=== PATIENT | male | born 1955 | race Caucasian/White ===

== ENCOUNTER 2018-04-01 12:59 | Inpatient (IN) ==
[2018-04-01] MEDS ORDERED: NS 1000 ML 1,000 ML IV ONE ×3 (14:25→16:12)
[2018-04-01] MEDS: NS 1000 ML 1,000 ML IV SCH (14:37)
--- NOTE | 2018-04-01 15:14 | RAD ---
HISTORY: Shortness of breath Study: PA and lateral views of the chest Comparison:None Findings: No infiltrate, effusion or pneumothorax identified. The cardiac and mediastinal contours are within n ormal limits. The soft tissues are unremarkable. IMPRESSION: 1. No acute cardiopulmonary abnormality. Reported By:
[2018-04-01 15:20] LABS: BASOPHILS # (AUTO) 0.1 X10^3/uL (0.0-0.1); BASOPHILS % (AUTO) 0.7 % (0.2-1.0); EOSINOPHILS % (AUTO) 0.4 % (0.9-2.9); HEMATOCRIT 37.3 % (42.0-54.0); HEMOGLOBIN 12.4 g/dL (13.5-18.0); LYMPHOCYTES # (AUTO) 1.6 X10^3/uL (1.3-2.9); LYMPHOCYTES % (AUTO) 14.4 % (21.0-51.0); MEAN CORPUSCULAR HEMOGLOBIN 30.2 pg (27.0-34.0); MEAN CORPUSCULAR HGB CONC 33.2 g/dL (33.0-35.0); MEAN PLATELET VOLUME 9.8 fL (7.4-11.0); MONOCYTES # (AUTO) 0.9 x10^3/uL (0.3-0.8); MONOCYTES % (AUTO) 8.7 % (0.0-13.0); NEUTROPHILS # (AUTO) 8.2 x10^3/uL (2.2-4.8); NEUTROPHILS % (AUTO) 75.8 % (42.0-75.0); PLATELET COUNT 136 X10^3/uL (150.0-450.0); RED CELL DISTRIBUTION WIDTH 13.5 % (11.6-16.5); WHITE BLOOD COUNT 10.8 X10^3/uL (3.6-10.0)
[2018-04-01 15:30] LABS: BILIRUBIN,URINE NEGATIVE (NEGATIVE); BLOOD/HEMOGLOBIN,URINE 3+ (NEGATIVE); GLUCOSE, URINE 4+ (NEGATIVE); KETONES,URINE NEGATIVE (NEGATIVE); LEUKOCYTE ESTERASE ,URINE 3+ (NEGATIVE); NITRITES,URINE NEGATIVE (NEGATIVE); PROTEIN,URINE 1+ (NEGATIVE); UROBILINOGEN,URINE NORMAL (NORMAL)
[2018-04-01 15:31] LABS: SERUM ACETONE NEGATIVE (NEGATIVE)
[2018-04-01 15:33] LABS: ALANINE AMINOTRANSFERASE 63 Units/L (12-78); ALKALINE PHOSPHATASE 104 Units/L (46-116); ASPARTATE AMINO TRANSFERASE 30 Units/L (15-37); BLOOD UREA NITROGEN 38 mg/dL (7-18); CALCIUM 9.7 mg/dL (8.5-10.1); CARBON DIOXIDE 29.5 mmol/L (21-32); CHLORIDE 90 mmol/L (98-107); COR CA(FOR HYPOALB) 10.5 mg/dL (8.5-10.1); CREATININE 2.49 mg/dL (0.70-1.30); TOTAL PROTEIN 7.5 g/dL (6.4-8.2); eGFR NON BLACK RACES 28 (>60)
[2018-04-01 15:41] LABS: APPEARANCE,URINE CLOUDY (CLEAR); COLOR,URINE YELLOW (YELLOW)
[2018-04-01 15:42] LABS: BACTERIA,URINE 1+ /HPF (NEGATIVE); SQUAMOUS EPITHELIAL CELL,UR FEW /HPF (NEGATIVE)
[2018-04-01 15:46] LABS: COR NA(FOR HYPERGLY) 143 mmol/L (136-145); SODIUM 124 mmol/L (136-145)
[2018-04-01] MEDS: HumuLIN R SUBCUT PRN ×3 (16:06→20:38)
[2018-04-01] MEDS ORDERED: SNACK - Diabetic Appropriate PO SCH (20:00)
[2018-04-01] MEDS: ROCEPHIN VIAL 1 GRAM 1 G in NS 100 ML IV + SPIKE MINIBAG* 100 ML IV SCH (20:31)
[2018-04-02] MEDS: NS 1000 ML 1,000 ML IV SCH ×4 (00:13→17:38)
[2018-04-02] MEDS: HumuLIN R SUBCUT PRN ×4 (03:16→20:42)
[2018-04-02 06:13] LABS: BASOPHILS # (AUTO) 0.1 X10^3/uL (0.0-0.1); BASOPHILS % (AUTO) 1.4 % (0.2-1.0); EOSINOPHILS # (AUTO) 0.1 x10^3/uL (0.0-0.2); HEMATOCRIT 32.8 % (42.0-54.0); HEMOGLOBIN 11.4 g/dL (13.5-18.0); LYMPHOCYTES # (AUTO) 1.7 X10^3/uL (1.3-2.9); LYMPHOCYTES % (AUTO) 20.2 % (21.0-51.0); MEAN CORPUSCULAR HEMOGLOBIN 30.5 pg (27.0-34.0); MEAN CORPUSCULAR HGB CONC 34.9 g/dL (33.0-35.0); MEAN CORPUSCULAR VOLUME 87.2 fL (80.0-100.0); MEAN PLATELET VOLUME 8.9 fL (7.4-11.0); MONOCYTES # (AUTO) 0.6 x10^3/uL (0.3-0.8); MONOCYTES % (AUTO) 7.4 % (0.0-13.0); NEUTROPHILS # (AUTO) 5.9 x10^3/uL (2.2-4.8); PLATELET COUNT 124 X10^3/uL (150.0-450.0); RED BLOOD COUNT 3.76 X10^6/uL (4.7-6.0); RED CELL DISTRIBUTION WIDTH 13.4 % (11.6-16.5); WHITE BLOOD COUNT 8.4 X10^3/uL (3.6-10.0)
[2018-04-02 06:34] LABS: ALBUMIN 2.5 g/dL (3.4-5.0); CALCIUM 8.7 mg/dL (8.5-10.1); CARBON DIOXIDE 27.7 mmol/L (21-32); COR CA(FOR HYPOALB) 9.9 mg/dL (8.5-10.1); CREATININE 1.74 mg/dL (0.70-1.30); TOTAL PROTEIN 6.4 g/dL (6.4-8.2)
[2018-04-02] MEDS: ROCEPHIN VIAL 1 GRAM 1 G in NS 100 ML IV + SPIKE MINIBAG* 100 ML IV SCH (08:39)
[2018-04-02] MEDS ORDERED: PHARMACY CONSULT - DOSE _____ XX SCH (10:00)
[2018-04-02] MEDS ORDERED: MORPHINE SULFATE INJ 2 MG INJ IVP PRN (10:11)
[2018-04-02] MEDS ORDERED: PHENERGAN INJ 25 MG IV PRN (10:11)
[2018-04-02] MEDS ORDERED: NORCO 5/325 MG TAB PO PRN (10:11)
[2018-04-02] MEDS: ZOFRAN INJ 4 MG VIAL IVP PRN ×2 (10:30→18:07)
[2018-04-02] MEDS: JANUVIA PO SCH (10:55)
[2018-04-02] MEDS: LEVEMIR SC SCH ×2 (10:56→20:41)
[2018-04-02] MEDS: FORTAZ or TAZICEF VIAL INJ 1 G in NS 100 ML IV + SPIKE MINIBAG* 100 ML IV SCH ×2 (11:03→21:45)
[2018-04-02] MEDS: CIPRO IV 400 MG PREMIX* 400 MG/200 ML IV.SOLN. IV SCH ×2 (11:30→20:41)
--- NOTE | 2018-04-02 18:40 | DR.UPDATE ---
H&P Update History and Physical Update: WAS SEEN IN THE OFFICE TODAY. HE WAS ADMITTED TO THE HOSPITAL FOR FURTHER EVALUATION AND TREATMENT. A H&P WAS COMPLETED PRIOR TO ADMISSION. PATIENT HAS BEEN SEEN AND EXAMINED WITH NO CHANGES NOTED TO H&P. Changes noted: NO Yes with the following:
--- NOTE | 2018-04-02 20:38 | PCM.PROG ---
Progress Note - Progress Note for Day of Date of Exam: 04/02/18 - Subjective Subjective: WAS ADMITTED FOR DEHYDRATION AND UNCONTROLLED DIABETES. HE WAS NOTED WITH A BLOOD GLUCOSE OF 886 ON ADMISSION, SODIUM OF 124, BUN 38, AND CREATININE 2.49. HE WAS GIVEN 14 UNITS REGULAR INSULIN AND STARTED ON NORMAL SALINE AT 125ML/HR. TODAY, HE IS ALERT AND ORIENTED, LYING IN BED ON MORNING ROUNDS. HE IS NOTED WITH COMPLAINTS OF GENERALIZED WEAKNESS. ON EXAMINATION, HEART IS REGULAR IN RATE AND RHYTHM. BILATERAL LUNGS ARE NOTED WITH DIMINISHED LUNG SOUNDS THROUGHOUT. ABDOMEN IS ROUND, SOFT, AND NON-TENDER WITH NORMAL BOWEL SOUNDS NOTED IN ALL QUADRANTS. HIS VITALS THIS MORNING ARE 98.7-83-20-95%-139/76. LABS WERE OBTAINED. ABNORMAL LAB VALUES INCLUDE THE FOLLOWING: RBC 3.76, HGB 11.4, HCT 32.8, PLT COUNT 124, SODIUM 135, POTASSIUM 3.3, BUN 31, CREATININE 1.74, GLUCOSE 392, ALBUMIN 2.5. URINALYSIS REVEALED URINE RBC 10-20, WBC TNTC, LEUKOCYTES 3+, BACTERIA 1+, OCCULT BLOOD 3+. TODAY, WE WILL START HIM ON FORTAZ IV AND CIPRO IV. WE WILL ALSO START JANUVIA 50MG PO DAILY AND LEVEMIR 10MG SC BID. OTHERWISE, WE WILL CONTINUE WITH IV ANTIBIOTICS, SLIDING SCALE INSULIN, AND CURRENT PLAN OF CARE. WE PLAN TO FOLLOW UP WITH AM LABS AND CONTINUE TO MONITOR PATIENT. - Past Medical Family Social History Past Med/Fam/Surg Hx: No changes since H&P Allergies: Allergies No Known Drug Allergies Allergy (Verified 04/01/18 14:32) - Review of Systems ROS: No change since H&P - Vital Signs and I&O's Vital Signs: Temperature 98.3 F Pulse Rate [Left Brachial] 100 Respiratory Rate 22 Blood Pressure [Left Arm] 99/53 Blood Pressure 120/75 O2 Sat by Pulse Oximetry 97 Intake and Output: Intake & Output 03/31/18 04/01/18 04/02/18 04/03/18 11:59 11:59 11:59 11:59 Intake Total 3130 / 3130 2240 / 2240 Output Total 200 / 200 Balance 2930 / 2930 2240 / 2240 - Physical Exam Oriented: Normal Eyes: Normal Ear: Normal Nose: Normal Throat: Normal Respiratory: Generalized, Diminished Cardiovascular: Normal. negative: S3, S4, Murmur : Normal Auscultation: Bowel Sounds: Normal Palpation: Normal Tenderness: Normal Skin: Normal Musculoskeletal: Normal Psychiatric: Normal Mood Description: Calm Affect: Normal Speech Pattern: Clear, Appropriate - Laboratory and Diagnostics Result Diagrams: 04/02/18 05:40 04/02/18 05:40 Labs: 04/01/18 15:21 Urine,Clean Catch Urine Culture - Preliminary Laboratory WBC 8.4 X10^3/uL (3.6-10.0) 04/02/18 05:40 RBC 3.76 X10^6/uL (4.7-6.0) L 04/02/18 05:40 Hgb 11.4 g/dL (13.5-18.0) L 04/02/18 05:40 Hct 32.8 % (42.0-54.0) L 04/02/18 05:40 MCV 87.2 fL (80.0-100.0) 04/02/18 05:40 MCH 30.5 pg (27.0-34.0) 04/02/18 05:40 MCHC 34.9 g/dL (33.0-35.0) 04/02/18 05:40 RDW 13.4 % (11.6-16.5) 04/02/18 05:40 Plt Count 124 X10^3/uL (150.0-450.0) L 04/02/18 05:40 MPV 8.9 fL (7.4-11.0) 04/02/18 05:40 Neut % (Auto) 70.0 % (42.0-75.0) 04/02/18 05:40 Lymph % (Auto) 20.2 % (21.0-51.0) L 04/02/18 05:40 [place] % (Auto) 7.4 % (0.0-13.0) 04/02/18 05:40 Eos % (Auto) 1.0 % (0.9-2.9) 04/02/18 05:40 Baso % (Auto) 1.4 % (0.2-1.0) H 04/02/18 05:40 Neut # (Auto) 5.9 x10^3/uL (2.2-4.8) H 04/02/18 05:40 Lymph # (Auto) 1.7 X10^3/uL (1.3-2.9) 04/02/18 05:40 [place] # (Auto) 0.6 x10^3/uL (0.3-0.8) 04/02/18 05:40 Eos # (Auto) 0.1 x10^3/uL (0.0-0.2) 04/02/18 05:40 Baso # (Auto) 0.1 X10^3/uL (0.0-0.1) 04/02/18 05:40 Absolute Nucleated RBC 0.0 /100WBC 04/02/18 05:40 Sodium 135 mmol/L (136-145) L 04/02/18 05:40 Corrected Sodium 142 mmol/L (136-145) 04/02/18 05:40 Potassium 3.3 mmol/L (3.5-5.1) L 04/02/18 05:40 Chloride 101 mmol/L (98-107) 04/02/18 05:40 Carbon Dioxide 27.7 mmol/L (21-32) 04/02/18 05:40 BUN 31 mg/dL (7-18) H 04/02/18 05:40 Creatinine 1.74 mg/dL (0.70-1.30) H 04/02/18 05:40 Est GFR (MDRD) Af Amer 52 (>60) L 04/02/18 05:40 Est GFR (MDRD) Non-Af 43 (>60) L 04/02/18 05:40 Glucose 392 mg/dL (65-99) H 04/02/18 05:40 POC Glucose (mg/dL) 332 mg/dL (65-99) H 04/02/18 19:40 Hemoglobin A1c 14.0 % 04/02/18 05:40 Calcium 8.7 mg/dL (8.5-10.1) 04/02/18 05:40 Corrected Calcium 9.9 mg/dL (8.5-10.1) 04/02/18 05:40 Total Bilirubin 0.40 mg/dL (0.2-1.0) 04/02/18 05:40 AST 31 Units/L (15-37) 04/02/18 05:40 ALT 53 Units/L (12-78) 04/02/18 05:40 Alkaline Phosphatase 84 Units/L (46-116) 04/02/18 05:40 Total Protein 6.4 g/dL (6.4-8.2) 04/02/18 05:40 Albumin 2.5 g/dL (3.4-5.0) L 04/02/18 05:40 Globulin 3.9 g/dL (2.5-4.5) 04/02/18 05:40 Albumin/Globulin Ratio 0.6 Ratio (1.1-2.1) L 04/02/18 05:40 Specimen Type Clean catch urine 04/01/18 15:21 Urine Color Yellow (YELLOW) 04/01/18 15:21 Urine Appearance Cloudy (CLEAR) 04/01/18 15:21 Urine pH 5.0 (5.0 - 8.0) 04/01/18 15:21 Ur Specific [place] 1.015 (1.000-1.030) 04/01/18 15:21 Urine Protein 1+ (NEGATIVE) 04/01/18 15:21 Urine Glucose (UA) 4+ (NEGATIVE) 04/01/18 15:21 Urine Ketones Negative (NEGATIVE) 04/01/18 15:21 Urine Occult Blood 3+ (NEGATIVE) 04/01/18 15:21 Urine Nitrite Negative (NEGATIVE) 04/01/18 15:21 Urine Bilirubin Negative (NEGATIVE) 04/01/18 15:21 Urine Urobilinogen Normal (NORMAL) 04/01/18 15:21 Ur Leukocyte Esterase 3+ (NEGATIVE) 04/01/18 15:21 Urine RBC 10-20 /HPF (NONE SEEN) 04/01/18 15:21 Urine WBC Tntc /HPF (NONE SEEN) 04/01/18 15:21 Ur Squamous Epith Cells Few /HPF (NEGATIVE) 04/01/18 15:21 Urine Bacteria 1+ /HPF (NEGATIVE) 04/01/18 15:21 Ur Culture Indicated? Yes/culture set up 04/01/18 15:21 Acetone, Semi-Quant Negative (NEGATIVE) 04/01/18 15:01 - Plan (1) Dehydration Status: Acute Plan: NORMAL SALINE AT 125ML/HR, CONTINUE TO MONITOR (2) Diabetes Status: Acute Qualifiers: Diabetes mellitus type: type 2 Diabetes mellitus long term acute care registered nurse insulin use: with long term acute care registered nurse use Diabetes mellitus complication status: with hyperglycemia Qualified Code(s): E11.65 - Type 2 diabetes mellitus with hyperglycemia; Z79.4 - laborer marine terminal (current) use of insulin Plan: HUMULIN R SLIDING SCALE, LEVEMIR 10 UNITS SC BID, JANUVIA 50MG PO DAILY, CONTINUE TO MONITOR (3) Urinary tract infection Status: Acute Qualifiers: Urinary tract infection type: acute cystitis Hematuria presence: with hematuria Qualified Code(s): N30.01 - Acute cystitis with hematuria Plan: FORTAZ IV, CIPRO IV, CONTINUE TO MONITOR
[2018-04-02] MEDS: SNACK - Diabetic Appropriate PO SCH (20:41)
[2018-04-03] MEDS: NS 1000 ML 1,000 ML IV SCH ×4 (00:23→22:20)
[2018-04-03 00:36] VITALS: BMI 35.3
[2018-04-03 05:30] LABS: BASOPHILS # (AUTO) 0.1 X10^3/uL (0.0-0.1); BASOPHILS % (AUTO) 0.8 % (0.2-1.0); EOSINOPHILS # (AUTO) 0.1 x10^3/uL (0.0-0.2); EOSINOPHILS % (AUTO) 0.5 % (0.9-2.9); HEMATOCRIT 34.1 % (42.0-54.0); HEMOGLOBIN 11.4 g/dL (13.5-18.0); LYMPHOCYTES # (AUTO) 1.6 X10^3/uL (1.3-2.9); LYMPHOCYTES % (AUTO) 13.6 % (21.0-51.0); MEAN CORPUSCULAR HEMOGLOBIN 29.5 pg (27.0-34.0); MEAN CORPUSCULAR HGB CONC 33.4 g/dL (33.0-35.0); MEAN CORPUSCULAR VOLUME 88.3 fL (80.0-100.0); MEAN PLATELET VOLUME 8.5 fL (7.4-11.0); MONOCYTES # (AUTO) 1.2 x10^3/uL (0.3-0.8); MONOCYTES % (AUTO) 10.6 % (0.0-13.0); NEUTROPHILS # (AUTO) 8.6 x10^3/uL (2.2-4.8); NEUTROPHILS % (AUTO) 74.5 % (42.0-75.0); PLATELET COUNT 136 X10^3/uL (150.0-450.0); RED BLOOD COUNT 3.87 X10^6/uL (4.7-6.0); RED CELL DISTRIBUTION WIDTH 13.5 % (11.6-16.5); WHITE BLOOD COUNT 11.6 X10^3/uL (3.6-10.0)
[2018-04-03 05:40] LABS: ALBUMIN 2.3 g/dL (3.4-5.0); CALCIUM 8.3 mg/dL (8.5-10.1); CARBON DIOXIDE 25.1 mmol/L (21-32); COR CA(FOR HYPOALB) 9.7 mg/dL (8.5-10.1); CREATININE 1.67 mg/dL (0.70-1.30); TOTAL PROTEIN 6.2 g/dL (6.4-8.2)
[2018-04-03] MEDS: HumuLIN R SUBCUT PRN ×4 (05:58→21:00)
[2018-04-03] MEDS: FORTAZ or TAZICEF VIAL INJ 1 G in NS 100 ML IV + SPIKE MINIBAG* 100 ML IV SCH ×2 (08:43→20:31)
[2018-04-03] MEDS: JANUVIA PO SCH (08:43)
[2018-04-03] MEDS: CIPRO IV 400 MG PREMIX* 400 MG/200 ML IV.SOLN. IV SCH ×2 (08:43→21:31)
[2018-04-03] MEDS: LEVEMIR SC SCH ×3 (08:44→20:34)
[2018-04-03] MEDS: FLOMAX PO SCH (10:00)
[2018-04-03] MEDS: LOVENOX INJ 40 MG SYR SC SCH (14:21)
[2018-04-03] MEDS: SNACK - Diabetic Appropriate PO SCH (20:34)
[2018-04-03] MEDS ORDERED: COLACE CAP 100 MG PO SCH (21:00)
[2018-04-03] MEDS ORDERED: MILK OF MAGNESIA PO SCH (21:00)
[2018-04-04 05:22] LABS: BASOPHILS % (AUTO) 0.6 % (0.2-1.0); EOSINOPHILS # (AUTO) 0.1 x10^3/uL (0.0-0.2); EOSINOPHILS % (AUTO) 1.1 % (0.9-2.9); HEMATOCRIT 31.9 % (42.0-54.0); LYMPHOCYTES # (AUTO) 1.5 X10^3/uL (1.3-2.9); MEAN CORPUSCULAR HEMOGLOBIN 30.4 pg (27.0-34.0); MEAN CORPUSCULAR HGB CONC 34.3 g/dL (33.0-35.0); MEAN CORPUSCULAR VOLUME 88.6 fL (80.0-100.0); MEAN PLATELET VOLUME 8.3 fL (7.4-11.0); MONOCYTES # (AUTO) 0.8 x10^3/uL (0.3-0.8); MONOCYTES % (AUTO) 9.9 % (0.0-13.0); NEUTROPHILS # (AUTO) 5.3 x10^3/uL (2.2-4.8); NEUTROPHILS % (AUTO) 68.4 % (42.0-75.0); PLATELET COUNT 123 X10^3/uL (150.0-450.0); RED CELL DISTRIBUTION WIDTH 13.4 % (11.6-16.5); WHITE BLOOD COUNT 7.7 X10^3/uL (3.6-10.0)
[2018-04-04] MEDS: HumuLIN R SUBCUT PRN ×2 (05:43→11:52)
[2018-04-04 05:59] LABS: ALANINE AMINOTRANSFERASE 45 Units/L (12-78); ALBUMIN 2.1 g/dL (3.4-5.0); ALKALINE PHOSPHATASE 73 Units/L (46-116); ASPARTATE AMINO TRANSFERASE 29 Units/L (15-37); BLOOD UREA NITROGEN 17 mg/dL (7-18); CALCIUM 7.8 mg/dL (8.5-10.1); CARBON DIOXIDE 25.3 mmol/L (21-32); CHLORIDE 106 mmol/L (98-107); COR CA(FOR HYPOALB) 9.3 mg/dL (8.5-10.1); COR NA(FOR HYPERGLY) 142 mmol/L (136-145); CREATININE 1.45 mg/dL (0.70-1.30); SODIUM 138 mmol/L (136-145); TOTAL PROTEIN 5.9 g/dL (6.4-8.2); eGFR NON BLACK RACES 53 (>60)
[2018-04-04] MEDS ORDERED: K-RIDER 10 MEQ/NS 100 ML 10 MEQ/100 ML BAG IV PRN (06:06)
[2018-04-04] MEDS ORDERED: POTASSIUM CHL 60 MEQ/NS 0.45% 500 ML IV PRN (06:06)
[2018-04-04] MEDS ORDERED: K-LYTE EFFERVESCENT PO PRN (06:06)
[2018-04-04] MEDS ORDERED: POTASSIUM CHLORIDE LIQ 20 MEQ UDC PO PRN (06:06)
[2018-04-04] MEDS ORDERED: POTASSIUM CHL 40 MEQ/NS 0.45% 500 ML IV PRN (06:06)
[2018-04-04] MEDS: FORTAZ or TAZICEF VIAL INJ 1 G in NS 100 ML IV + SPIKE MINIBAG* 100 ML IV SCH (09:29)
[2018-04-04] MEDS: FLOMAX PO SCH (09:29)
[2018-04-04] MEDS: JANUVIA PO SCH (09:30)
[2018-04-04] MEDS: LOVENOX INJ 40 MG SYR SC SCH (09:30)
[2018-04-04] MEDS: CIPRO IV 400 MG PREMIX* 400 MG/200 ML IV.SOLN. IV SCH (09:34)
[2018-04-04] MEDS: LEVEMIR SC SCH (09:55)
[2018-04-04 11:30] VITALS: BP 110/74
--- NOTE | 2018-04-05 17:24 | PCM.PROG ---
Progress Note - Progress Note for Day of Date of Exam: 04/03/18 - Subjective Subjective: WAS ADMITTED FOR DEHYDRATION AND UNCONTROLLED DIABETES. TODAY, HE IS ALERT AND ORIENTED, LYING IN BED ON MORNING ROUNDS. HE CONTINUES WITH COMPLAINTS OF GENERALIZED WEAKNESS. HE ALSO REPORTS DIFFUSE ABDOMINAL PAIN. ON EXAMINATION, HEART IS REGULAR IN RATE AND RHYTHM. BILATERAL LUNGS ARE NOTED WITH DIMINISHED LUNG SOUNDS THROUGHOUT. ABDOMEN IS ROUND, SOFT, AND NOTED WITH MILD, DIFFUSE ABDOMINAL PAIN TO PALPATION. NORMAL BOWEL SOUNDS NOTED IN ALL QUADRANTS. HIS VITALS THIS MORNING ARE 98.1-92-20-96%-110/69. LABS WERE OBTAINED. ABNORMAL LAB VALUES INCLUDE THE FOLLOWING: WBC 11.6, RBC 3.87, HGB 11.4, HCT 34.1, SODIUM 134, BUN 21, CREATININE 1.67, GLUCOSE 393, CALCIUM 8.3, TOTAL PROTEIN 6.2 ALBUMIN 2.3. HIS BLOOD GLUCOSE CONTINUES TO REMAIN ELEVATED DESPITE CHANGES TO HIS MEDICATION YESTERDAY. TODAY, WE WILL INCREASE THE LEVEMIR TO 20 UNITS SC BID. OTHERWISE, WE WILL CONTINUE WITH IV ANTIBIOTICS, SLIDING SCALE INSULIN, AND CURRENT PLAN OF CARE. WE PLAN TO FOLLOW UP WITH AM LABS AND CONTINUE TO MONITOR PATIENT. - Past Medical Family Social History Past Med/Fam/Surg Hx: No changes since H&P Allergies: Allergies No Known Drug Allergies Allergy (Verified 04/01/18 14:32) - Review of Systems ROS: No change since H&P - Vital Signs and I&O's Vital Signs: Temperature 98.3 F Pulse Rate [Left Brachial] 86 Respiratory Rate 20 Blood Pressure [Right Arm] 110/74 Blood Pressure [Left Arm] 102/57 Blood Pressure 120/75 O2 Sat by Pulse Oximetry 97 Intake and Output: Intake & Output 04/03/18 04/04/18 04/05/18 04/06/18 11:59 11:59 11:59 11:59 Intake Total 4600 / 4600 4480 / 4480 Balance 4600 / 4600 4480 / 4480 - Physical Exam Oriented: Normal Eyes: Normal Ear: Normal Nose: Normal Throat: Normal Respiratory: Generalized, Diminished Cardiovascular: Normal. negative: S3, S4, Murmur : Normal Auscultation: Bowel Sounds: Normal Palpation: Normal Tenderness: Diffuse, Mild. negative: Rebound, Guarding, Rigidity Skin: Normal Musculoskeletal: Normal Psychiatric: Normal Mood Description: Calm Affect: Normal Speech Pattern: Clear, Appropriate - Laboratory and Diagnostics Result Diagrams: 04/04/18 04:50 04/04/18 04:50 Labs: 04/01/18 15:21 Urine,Clean Catch Urine Culture - Final Escherichia Coli Laboratory WBC 7.7 X10^3/uL (3.6-10.0) 04/04/18 04:50 RBC 3.60 X10^6/uL (4.7-6.0) L 04/04/18 04:50 Hgb 11.0 g/dL (13.5-18.0) L 04/04/18 04:50 Hct 31.9 % (42.0-54.0) L 04/04/18 04:50 MCV 88.6 fL (80.0-100.0) 04/04/18 04:50 MCH 30.4 pg (27.0-34.0) 04/04/18 04:50 MCHC 34.3 g/dL (33.0-35.0) 04/04/18 04:50 RDW 13.4 % (11.6-16.5) 04/04/18 04:50 Plt Count 123 X10^3/uL (150.0-450.0) L 04/04/18 04:50 MPV 8.3 fL (7.4-11.0) 04/04/18 04:50 Neut % (Auto) 68.4 % (42.0-75.0) 04/04/18 04:50 Lymph % (Auto) 20.0 % (21.0-51.0) L 04/04/18 04:50 [place] % (Auto) 9.9 % (0.0-13.0) 04/04/18 04:50 Eos % (Auto) 1.1 % (0.9-2.9) 04/04/18 04:50 Baso % (Auto) 0.6 % (0.2-1.0) 04/04/18 04:50 Neut # (Auto) 5.3 x10^3/uL (2.2-4.8) H 04/04/18 04:50 Lymph # (Auto) 1.5 X10^3/uL (1.3-2.9) 04/04/18 04:50 [place] # (Auto) 0.8 x10^3/uL (0.3-0.8) 04/04/18 04:50 Eos # (Auto) 0.1 x10^3/uL (0.0-0.2) 04/04/18 04:50 Baso # (Auto) 0.0 X10^3/uL (0.0-0.1) 04/04/18 04:50 Absolute Nucleated RBC 0.0 /100WBC 04/04/18 04:50 Sodium 138 mmol/L (136-145) 04/04/18 04:50 Corrected Sodium 142 mmol/L (136-145) 04/04/18 04:50 Potassium 3.4 mmol/L (3.5-5.1) L 04/04/18 04:50 Chloride 106 mmol/L (98-107) 04/04/18 04:50 Carbon Dioxide 25.3 mmol/L (21-32) 04/04/18 04:50 BUN 17 mg/dL (7-18) 04/04/18 04:50 Creatinine 1.45 mg/dL (0.70-1.30) H 04/04/18 04:50 Est GFR (MDRD) Af Amer > 60 (>60) 04/04/18 04:50 Est GFR (MDRD) Non-Af 53 (>60) L 04/04/18 04:50 Glucose 260 mg/dL (65-99) H 04/04/18 04:50 POC Glucose (mg/dL) 295 mg/dL (65-99) H 04/04/18 11:43 Hemoglobin A1c 14.0 % 04/02/18 05:40 Calcium 7.8 mg/dL (8.5-10.1) L 04/04/18 04:50 Corrected Calcium 9.3 mg/dL (8.5-10.1) 04/04/18 04:50 Magnesium 2.0 mg/dL (1.7-2.9) 04/04/18 04:50 Total Bilirubin 0.30 mg/dL (0.2-1.0) 04/04/18 04:50 AST 29 Units/L (15-37) 04/04/18 04:50 ALT 45 Units/L (12-78) 04/04/18 04:50 Alkaline Phosphatase 73 Units/L (46-116) 04/04/18 04:50 Total Protein 5.9 g/dL (6.4-8.2) L 04/04/18 04:50 Albumin 2.1 g/dL (3.4-5.0) L 04/04/18 04:50 Globulin 3.8 g/dL (2.5-4.5) 04/04/18 04:50 Albumin/Globulin Ratio 0.6 Ratio (1.1-2.1) L 04/04/18 04:50 Specimen Type Clean catch urine 04/01/18 15:21 Urine Color Yellow (YELLOW) 04/01/18 15:21 Urine Appearance Cloudy (CLEAR) 04/01/18 15:21 Urine pH 5.0 (5.0 - 8.0) 04/01/18 15:21 Ur Specific [place] 1.015 (1.000-1.030) 04/01/18 15:21 Urine Protein 1+ (NEGATIVE) 04/01/18 15:21 Urine Glucose (UA) 4+ (NEGATIVE) 04/01/18 15:21 Urine Ketones Negative (NEGATIVE) 04/01/18 15:21 Urine Occult Blood 3+ (NEGATIVE) 04/01/18 15:21 Urine Nitrite Negative (NEGATIVE) 04/01/18 15:21 Urine Bilirubin Negative (NEGATIVE) 04/01/18 15:21 Urine Urobilinogen Normal (NORMAL) 04/01/18 15:21 Ur Leukocyte Esterase 3+ (NEGATIVE) 04/01/18 15:21 Urine RBC 10-20 /HPF (NONE SEEN) 04/01/18 15:21 Urine WBC Tntc /HPF (NONE SEEN) 04/01/18 15:21 Ur Squamous Epith Cells Few /HPF (NEGATIVE) 04/01/18 15:21 Urine Bacteria 1+ /HPF (NEGATIVE) 04/01/18 15:21 Ur Culture Indicated? Yes/culture set up 04/01/18 15:21 Acetone, Semi-Quant Negative (NEGATIVE) 04/01/18 15:01 - Plan (1) Dehydration Status: Acute Plan: NORMAL SALINE AT 125ML/HR, CONTINUE TO MONITOR (2) Diabetes Status: Acute Qualifiers: Diabetes mellitus type: type 2 Diabetes mellitus intermission coordinator insulin use: with mcc use Diabetes mellitus complication status: with hyperglycemia Qualified Code(s): E11.65 - Type 2 diabetes mellitus with hyperglycemia; Z79.4 - moth exterminator (current) use of insulin Plan: HUMULIN R SLIDING SCALE, LEVEMIR 20 UNITS SC BID, JANUVIA 50MG PO DAILY, CONTINUE TO MONITOR (3) Urinary tract infection Status: Acute Qualifiers: Urinary tract infection type: acute cystitis Hematuria presence: with hematuria Qualified Code(s): N30.01 - Acute cystitis with hematuria Plan: FORTAZ IV, CIPRO IV, CONTINUE TO MONITOR
== END 2018-04-04 12:40 | disposition home or self-care (01) | DRG 690 ==
LOC: MED/SURG → OBSVTOIN 13:03
PROVIDERS: ADMIT Internal Medicine; ATTEND Internal Medicine
DX: R26.89 Other abnormalities of gait and mobility; R06.02 Shortness of breath; N30.01 Acute cystitis with hematuria; Z79.4 Long term (current) use of insulin; R53.83 Other fatigue; R11.10 Vomiting, unspecified; N45.1 Epididymitis; I10 Essential (primary) hypertension; C61 Malignant neoplasm of prostate; K21.9 Gastro-esophageal reflux disease without esophagitis; E11.65 Type 2 diabetes mellitus with hyperglycemia; E87.1 Hypo-osmolality and hyponatremia; E86.0 Dehydration; R63.4 Abnormal weight loss; B96.29 Other Escherichia coli [E. coli] as the cause of diseases classified elsewhere
CPT/HCPCS: 36415; 71020; 71046; 80053; 81001; 82009; 82947; 83036; 83735; 85025; 87086; 87088; 87186; 93005; A4222; G0378; J0696; J0713; J0744; J1650; J1815; J2270; J2405; J7030; J7050; J8499

== ENCOUNTER 2021-01-27 12:06 | Inpatient (IN) ==
[2021-01-27] MEDS ORDERED: NS 1000 ML 1,000 ML IV ONE (12:29)
--- NOTE | 2021-01-27 12:34 | DR.DIZZY ---
HPI Time seen Time Seen by Provider: 01/27/21 12:23 PCP Primary Care Physician: JEANMARIE HPI Comment HPI Comment: Started feeling poorly on Friday with n/v which has persisted with constipation and sugars 500+; unable to keep po meds down and eating very little; last n/v this morning; no cp, sob, fever or chills; no coughing; he has noted "red" in his urine "which I think is blood"; no dysuria, lbp or h/o stones. Admits he fell on and had to have EMS come to get him up; was down at least 45 minutes. Complaint Chief Complaint:: PATIENT CAME TO ER REPORTS HAVING WEAKNESS AND N/V. COVID-19 Coronavirus risk:travel/contact w/high risk person: No Has patient experienced Coronavirus symptoms: No Source History Provided: Patient and EMS Mode of Arrival Mode of Arrival: EMS Timing Onset of Chief Complaint: 01/27/21 Context Stroke Symptoms: Dizziness PMH PMH Past Medical History: Yes Past Medical History: Diabetes and Hypertension Past Surgical History: Yes Surgical History: Ortho Surgery Past Surgical History Comment: THYROID REMOVED Family History History of Family Medical Conditions: Yes Family Medical History: Diabetes Mellitus Travel Risk Coronavirus risk:travel/contact w/high risk person: No Has patient experienced Coronavirus symptoms: No Infectious screening In the last 2 months have you had wt loss of >10#?: NO Have you had fever, night sweats or hemotysis?: No Have you traveled outside the country in the last 6 months?: No Isolation: Standard ROS Review of Systems Constitutional: No Symptoms Reported Eyes: No Symptoms Reported ENTM: No Symptoms Reported Respiratoy: No Symptoms Reported Cardiovascular: No Symptoms Reported Neurological: Weakness and Dizziness Musculoskeletal: No Symptoms Reported Integumentary: No Symptoms Reported Hematologic/Lymphatic: No Symptoms Reported Psychiatric: No Symptoms Reported PE Vital Signs Vitals: Temperature 98.3 F Pulse Rate 117 Respiratory Rate 30 Blood Pressure [Right Arm] 127/71 Blood Pressure 130/79 O2 Sat by Pulse Oximetry 97 General Limitations: No Limitations General Appearance: Alert and In No Apparent Distress Head Head Exam: Normal Inspection Eyes Eye exam: Normal Appearance ENT ENT Exam: Normal Exam, Normal Oropharynx and Normal External Ear Exam Neck Neck Exam: Normal Inspection and Full ROM Chest Chest Inspection: Normal Inspection Respiratory Respiratory Exam: Normal Lung Sounds Bilat Cardiovascular Cardiovascular Exam: Regular Rate and Normal Rhythm Abdominal Exam Abdominal Exam: Normal Inspection, Normal Bowel Sounds, Soft and Tenderness (minimal) Rectal Rectal Exam: Deferred Extremeties Extremities Exam: Normal Inspection and Full ROM Back Back Exam: Normal Inspection and Full ROM Neurologic Neurological Exam: Alert and Oriented X3 Psychiatric Psychiatric Exam: Normal Affect and Normal Mood Skin Skin Exam: Warm, Dry, Intact and Normal Color COURSE Treatment Treatment: 1350 results discussed with pt and both of whom agree with ad mission Reevaluation 1st: Unchanged Consultation Call Returned: 13:57 (Dr Bush returned call and accepts admission.) ROR Labs Reviewed Result Diagrams: 01/27/21 12:35 01/27/21 12:35 Laboratory: WBC 7.5 X10^3/uL (3.6-10.0) 01/27/21 12:35 RBC 3.91 X10^6/uL (4.7-6.0) L 01/27/21 12:35 Hgb 11.7 g/dL (13.5-18.0) L 01/27/21 12:35 Hct 34.4 % (42.0-54.0) L 01/27/21 12:35 MCV 88.0 fL (80.0-100.0) 01/27/21 12:35 MCH 29.9 pg (27.0-34.0) 01/27/21 12:35 MCHC 34.0 g/dL (33.0-35.0) 01/27/21 12:35 RDW 14.5 % (11.6-16.5) 01/27/21 12:35 Plt Count 55 X10^3/uL (150.0-450.0) L 01/27/21 12:35 MPV 8.5 fL (7.4-11.0) 01/27/21 12:35 Neut % (Auto) 87.6 % (42.0-75.0) H 01/27/21 12:35 Lymph % (Auto) 2.2 % (21.0-51.0) L 01/27/21 12:35 [place] % (Auto) 9.9 % (0.0-13.0) 01/27/21 12:35 Eos % (Auto) 0.0 % (0.9-2.9) L 01/27/21 12:35 Baso % (Auto) 0.3 % (0.2-1.0) 01/27/21 12:35 Neut # (Auto) 6.6 x10^3/uL (2.2-4.8) H 01/27/21 12:35 Lymph # (Auto) 0.2 X10^3/uL (1.3-2.9) L 01/27/21 12:35 [place] # (Auto) 0.7 x10^3/uL (0.3-0.8) 01/27/21 12:35 Eos # (Auto) 0.0 x10^3/uL (0.0-0.2) 01/27/21 12:35 Baso # (Auto) 0.0 X10^3/uL (0.0-0.1) 01/27/21 12:35 Absolute Nucleated RBC 0.0 /100WBC 01/27/21 12:35 Sodium 134 mmol/L (136-145) L 01/27/21 12:35 Corrected Sodium 140 mmol/L (136-145) 01/27/21 12:35 Potassium 3.8 mmol/L (3.5-5.1) 01/27/21 12:35 Chloride 100 mmol/L (98-107) 01/27/21 12:35 Carbon Dioxide 24.4 mmol/L (21-32) 01/27/21 12:35 BUN 53 mg/dL (7-18) H 01/27/21 12:35 Creatinine 3.27 mg/dL (0.70-1.30) H 01/27/21 12:35 Est GFR (MDRD) Af Amer 25 (>60) L 01/27/21 12:35 Est GFR (MDRD) Non-Af 20 (>60) L 01/27/21 12:35 Glucose 358 mg/dL (65-99) H 01/27/21 12:35 Calcium 8.6 mg/dL (8.5-10.1) 01/27/21 12:35 Corrected Calcium 9.6 mg/dL (8.5-10.1) 01/27/21 12:35 Total Bilirubin 0.60 mg/dL (0.2-1.0) 01/27/21 12:35 AST 106 Units/L (15-37) H 01/27/21 12:35 ALT 60 Units/L (12-78) 01/27/21 12:35 Alkaline Phosphatase 80 Units/L (46-116) 01/27/21 12:35 Creatine Kinase 2450 Units/L (39-308) H 01/27/21 12:35 CK-MB (CK-2) 3.1 ng/mL (0-4.0) 01/27/21 12:35 CK/CKMB % Calc 0.1 % (<4) 01/27/21 12:35 Troponin I 0.05 ng/mL (0-1.5) 01/27/21 12:35 Total Protein 7.1 g/dL (6.4-8.2) 01/27/21 12:35 Albumin 2.8 g/dL (3.4-5.0) L 01/27/21 12:35 Globulin 4.3 g/dL (2.5-4.5) 01/27/21 12:35 Albumin/Globulin Ratio 0.7 Ratio (1.1-2.1) L 01/27/21 12:35 Acetone, Semi-Quant Negative (NEGATIVE) 01/27/21 12:35 XRAY X-ray Results: abd series: There is no evidence for intestinal ileus, obstruction or perforation. Opioid Opioid Risk Tool Age (Red box if 16-45): No History of Preadolescent Sexual Abuse: No Total: 0 Total Score Risk Category: Low Risk Copyright: [facility] predicting aberrant behaviors Diagnosis Discharge Problem: Dehydration, Acute renal failure due to rhabdomyolysis, Hyperglycemia, Thr ombocytopenia Rhabdomyolysis Qualifiers: Rhabdomyolysis type: traumatic Encounter type: initial encounter Qualified Code(s): T79.6XXA - Traumatic ischemia of muscle, initial encounter Type 2 diabetes mellitus Qualifiers: Diabetes mellitus retirement insulin use: with retirement use Diabetes mellitus complication status: without complication Qualified Code(s): E11.9 - Type 2 diabetes mellitus without complications Instructions Instructions: Acute Kidney Injury, Adult Forms: Precautions for COVID19 Patient Portal Social Distancing
[2021-01-27] MEDS ORDERED: NS 1000 ML 1,000 ML ONE (12:37)
[2021-01-27] MEDS ORDERED: ZOFRAN INJ 4 MG VIAL ONE ×2 (12:37→19:44)
[2021-01-27] MEDS ORDERED: ZOFRAN INJ 4 MG VIAL IVP ONE (12:37)
[2021-01-27 12:44] LABS: LYMPHOCYTES # (AUTO) 0.2 X10^3/uL (1.3-2.9); LYMPHOCYTES % (AUTO) 2.2 % (21.0-51.0); MONOCYTES # (AUTO) 0.7 x10^3/uL (0.3-0.8)
[2021-01-27 12:47] LABS: BASOPHILS % (AUTO) 0.3 % (0.2-1.0); HEMATOCRIT 34.4 % (42.0-54.0); HEMOGLOBIN 11.7 g/dL (13.5-18.0); MEAN CORPUSCULAR HEMOGLOBIN 29.9 pg (27.0-34.0); MEAN PLATELET VOLUME 8.5 fL (7.4-11.0); MONOCYTES % (AUTO) 9.9 % (0.0-13.0); NEUTROPHILS # (AUTO) 6.6 x10^3/uL (2.2-4.8); NEUTROPHILS % (AUTO) 87.6 % (42.0-75.0); PLATELET COUNT 55 X10^3/uL (150.0-450.0); RED BLOOD COUNT 3.91 X10^6/uL (4.7-6.0); RED CELL DISTRIBUTION WIDTH 14.5 % (11.6-16.5); WHITE BLOOD COUNT 7.5 X10^3/uL (3.6-10.0)
[2021-01-27 13:05] LABS: ALANINE AMINOTRANSFERASE 60 Units/L (12-78); ALBUMIN 2.8 g/dL (3.4-5.0); ALKALINE PHOSPHATASE 80 Units/L (46-116); ASPARTATE AMINO TRANSFERASE 106 Units/L (15-37); BLOOD UREA NITROGEN 53 mg/dL (7-18); CALCIUM 8.6 mg/dL (8.5-10.1); CARBON DIOXIDE 24.4 mmol/L (21-32); CHLORIDE 100 mmol/L (98-107); COR CA(FOR HYPOALB) 9.6 mg/dL (8.5-10.1); COR NA(FOR HYPERGLY) 140 mmol/L (136-145); CREATINE KINASE MB 3.1 ng/mL (0-4.0); CREATININE 3.27 mg/dL (0.70-1.30); SODIUM 134 mmol/L (136-145); TOTAL PROTEIN 7.1 g/dL (6.4-8.2); TROPONIN I 0.05 ng/mL (0-1.5); eGFR NON BLACK RACES 20 (>60)
--- NOTE | 2021-01-27 13:23 | RAD ---
HISTORYWeakness pain nauseaSTUDYAbdomen with AP chest three viewsCOMPARISONChest, 09/13/2020FINDINGSAP chest demonstrates no acute findings. Supine and upright views abdomen demonstrate slight gaseous dilatation of scattered segments of small and large intestine. No fluid level, free air, mass or ascites. No urinary calcification is seen.IMPRESSIONThere is no evidence for intestinal ileus, obstruction or perforation.Electronically signed by: SID RESTREPO (January 27, 2021 13:21:53)
[2021-01-27 13:29] LABS: CKMB % 0.1 % (<4); CREATINE KINASE 2450 Units/L (39-308)
[2021-01-27 13:45] LABS: SERUM ACETONE NEGATIVE (NEGATIVE)
[2021-01-27 15:44] LABS: BILIRUBIN,URINE NEGATIVE (NEGATIVE); BLOOD/HEMOGLOBIN,URINE 5+ (NEGATIVE); GLUCOSE, URINE NEGATIVE (NEGATIVE); KETONES,URINE NEGATIVE (NEGATIVE); LEUKOCYTE ESTERASE ,URINE 3+ (NEGATIVE); NITRITES,URINE NEGATIVE (NEGATIVE); PROTEIN,URINE 3+ (NEGATIVE); UROBILINOGEN,URINE NORMAL (NORMAL)
[2021-01-27 15:53] LABS: APPEARANCE,URINE CLOUDY (CLEAR); BACTERIA,URINE 3+ /HPF (NEGATIVE); COLOR,URINE YELLOW (YELLOW); SQUAMOUS EPITHELIAL CELL,UR RARE /HPF (NEGATIVE)
[2021-01-27 15:54] LABS: AMORPHOUS SEDIMENT,UR 2+ /HPF (NEGATIVE); GRANULAR CASTS,URINE NUMEROUS /LPF (NEGATIVE)
[2021-01-27] MEDS: NS 1000 ML 1,000 ML IV SCH ×2 (16:21→23:24)
[2021-01-27] MEDS: HumuLIN R SUBCUT PRN ×2 (16:22→20:39)
[2021-01-27 16:25] VITALS: BMI 39.9
[2021-01-27] MEDS ORDERED: MILK OF MAGNESIA ONE (19:44)
[2021-01-27] MEDS ORDERED: COLACE CAP 100 MG PO ONE (19:44)
[2021-01-27] MEDS: SNACK - Diabetic Appropriate PO SCH (20:00)
[2021-01-27] MEDS: COLACE CAP 100 MG PO SCH (20:38)
[2021-01-27] MEDS: MILK OF MAGNESIA PO SCH (20:39)
[2021-01-27] MEDS: ZOFRAN INJ 4 MG VIAL IVP PRN (20:39)
[2021-01-27] MEDS: NORCO 5/325 MG TAB PO PRN (22:00)
[2021-01-27] MEDS: ROCEPHIN VIAL 1 GRAM 1 G in NS 100 ML IV + SPIKE MINIBAG* 100 ML IV SCH (23:31)
[2021-01-28] MEDS: NS 1000 ML 1,000 ML IV SCH ×5 (01:20→23:43)
[2021-01-28] MEDS: HumuLIN R SUBCUT PRN ×4 (06:10→21:09)
[2021-01-28 06:41] LABS: BASOPHILS % (AUTO) 0.5 % (0.2-1.0); EOSINOPHILS % (AUTO) 0.2 % (0.9-2.9); HEMATOCRIT 31.2 % (42.0-54.0); HEMOGLOBIN 10.6 g/dL (13.5-18.0); LYMPHOCYTES # (AUTO) 0.7 X10^3/uL (1.3-2.9); LYMPHOCYTES % (AUTO) 10.4 % (21.0-51.0); MEAN CORPUSCULAR HEMOGLOBIN 30.2 pg (27.0-34.0); MEAN CORPUSCULAR HGB CONC 34.1 g/dL (33.0-35.0); MEAN CORPUSCULAR VOLUME 88.7 fL (80.0-100.0); MEAN PLATELET VOLUME 8.8 fL (7.4-11.0); MONOCYTES # (AUTO) 1.1 x10^3/uL (0.3-0.8); MONOCYTES % (AUTO) 15.3 % (0.0-13.0); NEUTROPHILS # (AUTO) 5.1 x10^3/uL (2.2-4.8); NEUTROPHILS % (AUTO) 73.6 % (42.0-75.0); PLATELET COUNT 61 X10^3/uL (150.0-450.0); RED BLOOD COUNT 3.52 X10^6/uL (4.7-6.0); RED CELL DISTRIBUTION WIDTH 14.4 % (11.6-16.5)
[2021-01-28 07:18] LABS: ALBUMIN 2.4 g/dL (3.4-5.0); CALCIUM 8.1 mg/dL (8.5-10.1); CARBON DIOXIDE 25.7 mmol/L (21-32); COR CA(FOR HYPOALB) 9.4 mg/dL (8.5-10.1); CREATININE 2.86 mg/dL (0.70-1.30); TOTAL PROTEIN 6.3 g/dL (6.4-8.2)
[2021-01-28 07:20] LABS: BAND NEUTROPHILS % 2 % (0-10); PLATELET MORPHOLOGY COMMENT NORMAL (NORMAL)
[2021-01-28] MEDS: MILK OF MAGNESIA PO SCH ×2 (08:25→20:25)
[2021-01-28] MEDS: NORCO 5/325 MG TAB PO PRN ×2 (08:25→20:25)
[2021-01-28] MEDS: LEVEMIR SC SCH ×2 (09:58→20:29)
[2021-01-28] MEDS: ALBUMIN HUMAN 25%- 100 ML 100 ML IV SCH (10:57)
[2021-01-28] MEDS ORDERED: SNACK - Diabetic Appropriate PO SCH (20:00)
[2021-01-28] MEDS: COLACE CAP 100 MG PO SCH (20:26)
--- NOTE | 2021-01-28 20:55 | DR.H&P ---
H&P - History & Physical for Day of: H&P Date: 01/27/21 - Chief Complaint Chief Complaint: NAUSEA, VOMITING, CONSTIPATION, HYPERGLYCEMIA, GENERALIZED WEAKNESS, RECENT FALL, AND BLOOD IN URINE - History of Present Illness History of Present Illness: IS A 65 YEAR OLD PATIENT OF OURS WHO PRESENTED TO THE ER WITH COMPLAINTS OF NAUSEA, VOMITING, CONSTIPATION, HYPERGLYCEMIA, GENERALIZED WEAKNESS, RECENT FALL, AND BLOOD IN URINE. HE DENIES CHEST PAIN, SOB, FEVER, CHILLS, COUGH, DYSURIA, OR BACK PAIN. SYMPTOMS STARTED ONE DAY PRIOR AND HAVE PROGRESSIVELY GOTTEN WORSE. HIS PMH INCLUDES DIABETES, HTN, AND THYROIDECTOMY. ON ARRIVAL TO THE ER, VITALS WERE 98.3-126-22-92%RA-124/73. LABS WERE OBTAINED. ABNORMAL LAB VALUES INCLUDE THE FOLLOWING: WBC 3.91, HGB 11.7, HCT 34.4, PLT COUNT 55, SODIUM 134, BUN 53, CREATININE 3.27, GLUCOSE 358, AST 106, CREATINE KINASE 2450, ALBUMIN 2.8. URINALYSIS OBTAINED AND REVEALED: WBC 30-50, RBC 3-5, BACTERIA 3+, LEUKOCYTES 3+, OCCULT BLOOD 5+. ACETONE NEGATIVE. COVID-19 NEGATIVE. URINE CULTURE PENDING. ABDOMEN XRAY REVEALED: There is no evidence for intestinal ileus, obstruction or perforation. IN THE ER, HE WAS GIVEN A NORMAL SALINE BOLUS X 1 LITER, ZOFRAN 4MG IV X 1 DOSE. HE WAS ADMITTED TO THE HOSPITAL FOR FURTHER EVALUATION AND TREATMENT OF RHABDO, ACUTE KIDNEY INJURY, URINARY TRACT INFECTION, DEHYDRATION, AND NAUSEA/VOMITING. HE WAS STARTED ON NORMAL SALINE AT 125 ML/HR, ROCEPHIN 1G IV DAILY, ALBUMIN 25% IV DAILY, LEVEMIR 50MG SC BID, HUMULIN R SLIDING SCALE, ZOFRAN 4MG IV Q8H PRN, NORCO 5/325MG PO Q6H PRN, COLACE 200MG PO HS, AND MILK OF MAGNESIA 30MG PO BID. OTHERWISE, WE WILL FOLLOW UP WITH AM LABS AND CONTINUE TO MONITOR. TIME SPENT ON CLINICAL ASSESSMENT, REVIEWING LABS AND IMAGING, DECISION MAKING, AND DOCUMENTATION WAS GREATER THAN 75 MINUTES. - Past Medical History Past Medical History: Arthritis, Diabetes, GERD, Hypertension Additional Medical History: PROSTATE CA - Past Surgical History Surgical History: Ortho Surgery Additional Surgical History: THYROIDECTOMY - Family History Family Medical History: Diabetes Mellitus, Hypertension - Social History Alcohol Use: None Drug Use: None - Medications Home Medications: naproxen [From Aleve] Allergy (Verified 01/27/21 13:52) CONTINUE taking the following medications insulin detemir U-100 [Levemir U-100 Insulin] 50 units SC BID 01/27/21 [History] levothyroxine 175 mcg PO DAILY 01/28/21 [History] - Review of Systems Constitutional: Weakness, Malaise Eyes: No Symptoms Reported ENT: No Symptoms Reported Respiratory: No Symptoms Reported Cardiovascular: No Symptoms Reported Gastrointestinal: Nausea, Vomiting, Constipation Genitourinary: Hematuria Musculoskeletal: No Symptoms Reported Skin: No Symptoms Reported Neurological: Weakness - Physical Exam Vital Signs: Temperature 98.1 F Pulse Rate [Left Brachial] 86 Pulse Rate 112 Respiratory Rate 20 Blood Pressure [Left Arm] 131/72 Blood Pressure [Right Arm] 127/71 Blood Pressure 151/71 O2 Sat by Pulse Oximetry 98 Oriented: Normal Eyes: Normal Ear: Normal Nose: Normal Throat: Normal Respiratory: Diminished Throughout Cardiovascular: Tachycardia : Normal Auscultation: Bowel Sounds: Normal Palpation: Normal Tenderness: Diffuse, Mild Skin: Normal Musculoskeletal: Normal Psychiatric: Normal Mood Description: Calm Affect: Normal Speech Pattern: Clear - Assessment/Plan (1) Rhabdomyolysis Qualifiers: Rhabdomyolysis type: traumatic Encounter type: initial encounter Qualified Code(s): T79.6XXA - Traumatic ischemia of muscle, initial encounter Status: Acute Plan: ADMIT, NORMAL SALINE AT 125 ML/HR, ROCEPHIN 1G IV DAILY, ALBUMIN 25% IV DAILY, LEVEMIR 50MG SC BID, HUMULIN R SLIDING SCALE, ZOFRAN 4MG IV Q8H PRN, NORCO 5/325MG PO Q6H PRN, COLACE 200MG PO HS, AND MILK OF MAGNESIA 30MG PO BID. (2) Acute renal failure due to rhabdomyolysis Status: Acute (3) Urinary tract infection Qualifiers: Urinary tract infection type: acute cystitis Hematuria presence: with hematuria Qualified Code(s): N30.01 - Acute cystitis with hematuria Status: Acute (4) Dehydration Status: Acute (5) Hyperglycemia Status: Acute (6) Nausea and vomiting Qualifiers: Vomiting type: unspecified Vomiting Intractability: unspecified Qualified Code(s): R11.2 - Nausea with vomiting, unspecified Status: Acute - Allergies Allergies/Adverse Reactions: Allergies Allergy/AdvReac Type Severity Reaction Status Date / Time naproxen [From Aleve] Allergy Verified 01/27/21 13:52
[2021-01-28] MEDS: SNACK - Diabetic Appropriate PO SCH (21:08)
[2021-01-28] MEDS: ROCEPHIN VIAL 1 GRAM 1 G in NS 100 ML IV + SPIKE MINIBAG* 100 ML IV SCH (22:12)
[2021-01-29] MEDS: NS 1000 ML 1,000 ML IV SCH ×3 (05:21→20:00)
[2021-01-29 06:15] LABS: BASOPHILS % (AUTO) 0.4 % (0.2-1.0); EOSINOPHILS # (AUTO) 0.1 x10^3/uL (0.0-0.2); EOSINOPHILS % (AUTO) 0.9 % (0.9-2.9); HEMATOCRIT 27.1 % (42.0-54.0); HEMOGLOBIN 9.5 g/dL (13.5-18.0); LYMPHOCYTES # (AUTO) 0.9 X10^3/uL (1.3-2.9); LYMPHOCYTES % (AUTO) 14.7 % (21.0-51.0); MEAN CORPUSCULAR HEMOGLOBIN 30.6 pg (27.0-34.0); MEAN CORPUSCULAR VOLUME 87.4 fL (80.0-100.0); MEAN PLATELET VOLUME 8.6 fL (7.4-11.0); MONOCYTES # (AUTO) 0.9 x10^3/uL (0.3-0.8); MONOCYTES % (AUTO) 15.3 % (0.0-13.0); NEUTROPHILS % (AUTO) 68.7 % (42.0-75.0); PLATELET COUNT 60 X10^3/uL (150.0-450.0); RED CELL DISTRIBUTION WIDTH 14.3 % (11.6-16.5); WHITE BLOOD COUNT 5.9 X10^3/uL (3.6-10.0)
[2021-01-29 06:28] LABS: ALBUMIN 2.3 g/dL (3.4-5.0); CALCIUM 7.9 mg/dL (8.5-10.1); CARBON DIOXIDE 26.9 mmol/L (21-32); COR CA(FOR HYPOALB) 9.3 mg/dL (8.5-10.1); CREATININE 2.22 mg/dL (0.70-1.30); TOTAL PROTEIN 5.9 g/dL (6.4-8.2)
[2021-01-29 06:49] LABS: CREATINE KINASE MB 1.5 ng/mL (0-4.0); TROPONIN I 0.02 ng/mL (0-1.5)
[2021-01-29 06:52] LABS: CKMB % 0.1 % (<4)
[2021-01-29 07:14] LABS: BAND NEUTROPHILS % 10 % (0-10)
[2021-01-29 07:15] LABS: PLATELET MORPHOLOGY COMMENT NORMAL (NORMAL)
[2021-01-29] MEDS: LEVEMIR SC SCH ×2 (08:34→20:28)
[2021-01-29] MEDS: ALBUMIN HUMAN 25%- 100 ML 100 ML IV SCH (08:35)
[2021-01-29] MEDS: MILK OF MAGNESIA PO SCH ×2 (08:37→20:30)
--- NOTE | 2021-01-29 10:13 | RAD ---
HISTORYSOBSTUDYCHEST, 1 VIEWCOMPARISONPA and lateral chest September 13, 2020FINDINGSThe trachea is midline. The cardiac silhouette is unremarkable . The lungs are clear without focal infiltrate or effusion. The bony thorax is unremarkable.IMPRESSIONNo acute cardiopulmonary disease and no change compared to September 13, 2020..Electronically signed by: MARYCARMEN SIMMONS (January 29, 2021 10:12:01)
--- NOTE | 2021-01-29 10:46 | PCM.PROG ---
Progress Note - Progress Note for Day of Date of Exam: 01/28/21 - Subjective Subjective: IS BEING TREATED FOR RHABDO, ACUTE KIDNEY INJURY, URINARY TRACT INFECTION, DEHYDRATION, AND NAUSEA/VOMITING. TODAY, HE IS ALERT AND ORIENTED, LYING IN BED ON MORNING ROUNDS. HE CONTINUES WITH WEAKNESS AND NAUSEA THIS MORNING, BUT DOES ADMIT TO SLIGHT IMPROVEMENT IN SYMPTOMS SINCE ADMISSION. ON EXAMINATION, HEART IS REGULAR IN RATE AND RHYTHM. BILATERAL LUNGS ARE NOTED WITH DIMINISHED LUNG SOUNDS THROUGHOUT. ABDOMEN IS ROUND, SOFT, AND NON-TENDER WITH NORMAL BOWEL SOUNDS NOTED IN ALL QUADRANTS. HIS VITALS THIS MORNING ARE: 98.7-99-20-97%-126/74. LABS WERE OBTAINED. ABNORMAL LAB VALUES INCLUDE THE FOLLOWING: RBC 3.52, HGB 10.6, HCT 31.2, PLT COUNT 61, BUN 49, CREATININE 2.86, GLUCOSE 289, CALCIUM 8.1, AST 106, CREATINE KINASE 2418, TOTAL PROTEIN 6.3, ALBUMIN 2.4. URINE CULTURE IS PENDING. HE IS CURRENTLY RECEIVING NORMAL SALINE AT 125 ML/HR, ROCEPHIN 1G IV DAILY, ALBUMIN 25% IV DAILY, LEVEMIR 50MG SC BID, HUMULIN R SLIDING SCALE, ZOFRAN 4MG IV Q8H PRN, NORCO 5/325MG PO Q6H PRN, COLACE 200MG PO HS, AND MILK OF MAGNESIA 30MG PO BID. WE WILL CONTINUE WITH CURRENT PLAN OF CARE TODAY. OTHERWISE, WE PLAN TO FOLLOW UP WITH AM LABS AND CONTINUE TO MONITOR. TIME SPENT ON CLINICAL ASSESSMENT, REVIEWING LABS AND IMAGING, DECISION MAKING, AND DOCUMENTATION GREATER THAN 45 MINUTES. - Past Medical Family Social History Past Med/Fam/Surg Hx: No changes since H&P Allergies: Allergies naproxen [From Aleve] Allergy (Verified 01/27/21 13:52) - Review of Systems ROS: No change since H&P - Vital Signs and I&O's Vital Signs: Temperature 98.7 F Pulse Rate [Left Brachial] 89 Pulse Rate 112 Respiratory Rate 22 Blood Pressure [Left Arm] 156/84 Blood Pressure [Right Arm] 127/71 Blood Pressure 151/71 O2 Sat by Pulse Oximetry 96 Intake and Output: Intake & Output 01/26/21 01/27/21 01/28/21 01/29/21 11:59 11:59 11:59 11:59 Intake Total 2736 / 2736 6830 / 6830 Output Total 1150 / 1150 Balance 1586 / 1586 39 / 30 - Physical Exam Oriented: Normal Eyes: Normal Ear: Normal Nose: Normal Throat: Normal Respiratory: Generalized, Diminished Cardiovascular: Normal : Normal Auscultation: Bowel Sounds: Normal Palpation: Normal Tenderness: Diffuse, Mild Skin: Normal Musculoskeletal: Normal Psychiatric: Normal Mood Description: Calm Affect: Normal Speech Pattern: Clear - Laboratory and Diagnostics Result Diagrams: 01/29/21 05:39 01/29/21 05:35 Labs: 01/27/21 15:36 Urine,Clean Catch Urine Culture - Final Escherichia Coli Laboratory WBC 5.9 X10^3/uL (3.6-10.0) 01/29/21 05:39 RBC 3.10 X10^6/uL (4.7-6.0) L 01/29/21 05:39 Hgb 9.5 g/dL (13.5-18.0) L 01/29/21 05:39 Hct 27.1 % (42.0-54.0) L 01/29/21 05:39 MCV 87.4 fL (80.0-100.0) 01/29/21 05:39 MCH 30.6 pg (27.0-34.0) 01/29/21 05:39 MCHC 35.0 g/dL (33.0-35.0) 01/29/21 05:39 RDW 14.3 % (11.6-16.5) 01/29/21 05:39 Plt Count 60 X10^3/uL (150.0-450.0) L 01/29/21 05:39 Plt Count Comment Decreased (ADEQUATE) 01/29/21 05:39 MPV 8.6 fL (7.4-11.0) 01/29/21 05:39 Neut % (Auto) 68.7 % (42.0-75.0) 01/29/21 05:39 Lymph % (Auto) 14.7 % (21.0-51.0) L 01/29/21 05:39 [place] % (Auto) 15.3 % (0.0-13.0) H 01/29/21 05:39 Eos % (Auto) 0.9 % (0.9-2.9) 01/29/21 05:39 Baso % (Auto) 0.4 % (0.2-1.0) 01/29/21 05:39 Neut # (Auto) 4.0 x10^3/uL (2.2-4.8) 01/29/21 05:39 Lymph # (Auto) 0.9 X10^3/uL (1.3-2.9) L 01/29/21 05:39 [place] # (Auto) 0.9 x10^3/uL (0.3-0.8) H 01/29/21 05:39 Eos # (Auto) 0.1 x10^3/uL (0.0-0.2) 01/29/21 05:39 Baso # (Auto) 0.0 X10^3/uL (0.0-0.1) 01/29/21 05:39 Absolute Nucleated RBC 0.0 /100WBC 01/29/21 05:39 Total Counted 100 01/29/21 05:39 Neutrophils % (Manual) 60 % (39-76) 01/29/21 05:39 Band Neutrophils % 10 % (0-10) 01/29/21 05:39 Lymphocytes % (Manual) 12 % (13-43) L 01/29/21 05:39 Monocytes % (Manual) 16 % (4-9) H 01/29/21 05:39 Eosinophils % (Manual) 2 % (0-6) 01/29/21 05:39 Plt Morphology Comment Normal (NORMAL) 01/29/21 05:39 RBC Morphology Normal (NORMAL) 01/29/21 05:39 Sodium 139 mmol/L (136-145) 01/29/21 05:35 Corrected Sodium 140 mmol/L (136-145) 01/29/21 05:35 Potassium 3.8 mmol/L (3.5-5.1) 01/29/21 05:35 Chloride 107 mmol/L (98-107) 01/29/21 05:35 Carbon Dioxide 26.9 mmol/L (21-32) 01/29/21 05:35 BUN 44 mg/dL (7-18) H 01/29/21 05:35 Creatinine 2.22 mg/dL (0.70-1.30) H 01/29/21 05:35 Est GFR (MDRD) Af Amer 39 (>60) L 01/29/21 05:35 Est GFR (MDRD) Non-Af 32 (>60) L 01/29/21 05:35 Glucose 138 mg/dL (65-99) H 01/29/21 05:35 POC Glucose (mg/dL) 153 mg/dL (65-99) H 01/29/21 05:21 Calcium 7.9 mg/dL (8.5-10.1) L 01/29/21 05:35 Corrected Calcium 9.3 mg/dL (8.5-10.1) 01/29/21 05:35 Total Bilirubin 0.30 mg/dL (0.2-1.0) 01/29/21 05:35 AST 87 Units/L (15-37) H 01/29/21 05:35 ALT 56 Units/L (12-78) 01/29/21 05:35 Alkaline Phosphatase 59 Units/L (46-116) 01/29/21 05:35 Creatine Kinase 1068 Units/L (39-308) H 01/29/21 05:39 CK-MB (CK-2) 1.5 ng/mL (0-4.0) 01/29/21 05:39 CK/CKMB % Calc 0.1 % (<4) 01/29/21 05:39 Troponin I 0.02 ng/mL (0-1.5) 01/29/21 05:39 Total Protein 5.9 g/dL (6.4-8.2) L 01/29/21 05:35 Albumin 2.3 g/dL (3.4-5.0) L 01/29/21 05:35 Globulin 3.6 g/dL (2.5-4.5) 01/29/21 05:35 Albumin/Globulin Ratio 0.6 Ratio (1.1-2.1) L 01/29/21 05:35 Specimen Type Clean catch urine 01/27/21 15:36 Urine Color Yellow (YELLOW) 01/27/21 15:36 Urine Appearance Cloudy (CLEAR) 01/27/21 15:36 Urine pH 5.0 (5.0 - 8.0) 01/27/21 15:36 Ur Specific [place] 1.015 (1.000-1.030) 01/27/21 15:36 Urine Protein 3+ (NEGATIVE) 01/27/21 15:36 Urine Glucose (UA) Negative (NEGATIVE) 01/27/21 15:36 Urine Ketones Negative (NEGATIVE) 01/27/21 15:36 Urine Occult Blood 5+ (NEGATIVE) 01/27/21 15:36 Urine Nitrite Negative (NEGATIVE) 01/27/21 15:36 Urine Bilirubin Negative (NEGATIVE) 01/27/21 15:36 Urine Urobilinogen Normal (NORMAL) 01/27/21 15:36 Ur Leukocyte Esterase 3+ (NEGATIVE) 01/27/21 15:36 Urine RBC 3-5 /HPF (0-3) A 01/27/21 15:36 Urine WBC 30-50 /HPF (0-5) A 01/27/21 15:36 Ur Squamous Epith Cells Rare /HPF (NEGATIVE) 01/27/21 15:36 Amorphous Sediment 2+ /HPF (NEGATIVE) 01/27/21 15:36 Urine Bacteria 3+ /HPF (NEGATIVE) 01/27/21 15:36 Granular Casts Numerous /LPF (NEGATIVE) 01/27/21 15:36 Ur Culture Indicated? Yes/culture set up 01/27/21 15:36 Acetone, Semi-Quant Negative (NEGATIVE) 01/27/21 12:35 SARS CoV-2 RNA Rapid ANA LUISA Negative (NEGATIVE) 01/27/21 14:33 - Plan (1) Rhabdomyolysis Status: Acute Qualifiers: Rhabdomyolysis type: traumatic Encounter type: initial encounter Qualified Code(s): T79.6XXA - Traumatic ischemia of muscle, initial encounter Plan: NORMAL SALINE AT 125 ML/HR, ROCEPHIN 1G IV DAILY, ALBUMIN 25% IV DAILY, LEVEMIR 50MG SC BID, HUMULIN R SLIDING SCALE, ZOFRAN 4MG IV Q8H PRN, NORCO 5/325MG PO Q6H PRN, COLACE 200MG PO HS, AND MILK OF MAGNESIA 30MG PO BID. (2) Acute renal failure due to rhabdomyolysis Status: Acute (3) Urinary tract infection Status: Acute Qualifiers: Urinary tract infection type: acute cystitis Hematuria presence: with hematuria Qualified Code(s): N30.01 - Acute cystitis with hematuria (4) Dehydration Status: Acute (5) Hyperglycemia Status: Acute (6) Nausea and vomiting Status: Acute Qualifiers: Vomiting type: unspecified Vomiting Intractability: unspecified Qualified Code(s): R11.2 - Nausea with vomiting, unspecified
--- NOTE | 2021-01-29 10:48 | PCM.PROG ---
Progress Note - Progress Note for Day of Date of Exam: 01/29/21 - Subjective Subjective: IS BEING TREATED FOR RHABDO, ACUTE KIDNEY INJURY, URINARY TRACT INFECTION, DEHYDRATION, AND NAUSEA/VOMITING. TODAY, HE IS ALERT AND ORIENTED, LYING IN BED ON MORNING ROUNDS. HE CONTINUES WITH WEAKNESS THIS MORNING, BUT CONTINUES TO ADMIT TO SLIGHT IMPROVEMENT IN SYMPTOMS SINCE ADMIS ROSALINDA. ON EXAMINATION, HEART IS REGULAR IN RATE AND RHYTHM. BILATERAL LUNGS ARE NOTED WITH DIMINISHED LUNG SOUNDS THROUGHOUT. ABDOMEN IS ROUND, SOFT, AND NON- TENDER WITH NORMAL BOWEL SOUNDS NOTED IN ALL QUADRANTS. HIS VITALS THIS MORNING ARE: 98.7-89-22-96%-156/84. LABS WERE OBTAINED. ABNORMAL LAB VALUES INCLUDE THE FOLLOWING: RBC 3.10, HGB 9.5, HCT 27.1, PLT COUNT 60, BUN 44, CREATININE 2.22, GLUCOSE 138, CALCIUM 7.9, AST 87, CREATINE KINASE 1068, TOTAL PROTEIN 5.9, ALBUMIN 2.3. URINE CULTURE IS PENDING. HE IS CURRENTLY RECEIVING NORMAL SALINE AT 125 ML/HR, ROCEPHIN 1G IV DAILY, ALBUMIN 25% IV DAILY, LEVEMIR 50MG SC BID, HUMULIN R SLIDING SCALE, ZOFRAN 4MG IV Q8H PRN, NORCO 5/325MG PO Q6H PRN, COLACE 200MG PO HS, AND MILK OF MAGNESIA 30MG PO BID. WE WILL CONTINUE WITH CURRENT PLAN OF CARE TODAY. OTHERWISE, WE PLAN TO FOLLOW UP WITH AM LABS AND CONTINUE TO MONITOR. TIME SPENT ON CLINICAL ASSESSMENT, REVIEWING LABS AND IMAGING, DECISION MAKING, AND DOCUMENTATION GREATER THAN 45 MINUTES. - Past Medical Family Social History Past Med/Fam/Surg Hx: No changes since H&P Allergies: Allergies naproxen [From Aleve] Allergy (Verified 01/27/21 13:52) - Review of Systems ROS: No change since H&P - Vital Signs and I&O's Vital Signs: Temperature 98.7 F Pulse Rate [Left Brachial] 89 Pulse Rate 112 Respiratory Rate 22 Blood Pressure [Left Arm] 156/84 Blood Pressure [Right Arm] 127/71 Blood Pressure 151/71 O2 Sat by Pulse Oximetry 96 Intake and Output: Intake & Output 01/26/21 01/27/21 01/28/21 01/29/21 11:59 11:59 11:59 11:59 Intake Total 2736 / 2736 6830 / 30 Output Total 1150 / 1150 Balance 1586 / 1586 6829 / 30 - Physical Exam Oriented: Normal Eyes: Normal Ear: Normal Nose: Normal Throat: Normal Respiratory: Generalized, Diminished Cardiovascular: Normal : Normal Auscultation: Bowel Sounds: Normal Tenderness: Diffuse, Mild Skin: Normal Musculoskeletal: Normal Psychiatric: Normal Mood Description: Calm Affect: Normal Speech Pattern: Clear - Laboratory and Diagnostics Result Diagrams: 01/29/21 05:39 01/29/21 05:35 Labs: 01/27/21 15:36 Urine,Clean Catch Urine Culture - Final Escherichia Coli Laboratory WBC 5.9 X10^3/uL (3.6-10.0) 01/29/21 05:39 RBC 3.10 X10^6/uL (4.7-6.0) L 01/29/21 05:39 Hgb 9.5 g/dL (13.5-18.0) L 01/29/21 05:39 Hct 27.1 % (42.0-54.0) L 01/29/21 05:39 MCV 87.4 fL (80.0-100.0) 01/29/21 05:39 MCH 30.6 pg (27.0-34.0) 01/29/21 05:39 MCHC 35.0 g/dL (33.0-35.0) 01/29/21 05:39 RDW 14.3 % (11.6-16.5) 01/29/21 05:39 Plt Count 60 X10^3/uL (150.0-450.0) L 01/29/21 05:39 Plt Count Comment Decreased (ADEQUATE) 01/29/21 05:39 MPV 8.6 fL (7.4-11.0) 01/29/21 05:39 Neut % (Auto) 68.7 % (42.0-75.0) 01/29/21 05:39 Lymph % (Auto) 14.7 % (21.0-51.0) L 01/29/21 05:39 [place] % (Auto) 15.3 % (0.0-13.0) H 01/29/21 05:39 Eos % (Auto) 0.9 % (0.9-2.9) 01/29/21 05:39 Baso % (Auto) 0.4 % (0.2-1.0) 01/29/21 05:39 Neut # (Auto) 4.0 x10^3/uL (2.2-4.8) 01/29/21 05:39 Lymph # (Auto) 0.9 X10^3/uL (1.3-2.9) L 01/29/21 05:39 [place] # (Auto) 0.9 x10^3/uL (0.3-0.8) H 01/29/21 05:39 Eos # (Auto) 0.1 x10^3/uL (0.0-0.2) 01/29/21 05:39 Baso # (Auto) 0.0 X10^3/uL (0.0-0.1) 01/29/21 05:39 Absolute Nucleated RBC 0.0 /100WBC 01/29/21 05:39 Total Counted 100 01/29/21 05:39 Neutrophils % (Manual) 60 % (39-76) 01/29/21 05:39 Band Neutrophils % 10 % (0-10) 01/29/21 05:39 Lymphocytes % (Manual) 12 % (13-43) L 01/29/21 05:39 Monocytes % (Manual) 16 % (4-9) H 01/29/21 05:39 Eosinophils % (Manual) 2 % (0-6) 01/29/21 05:39 Plt Morphology Comment Normal (NORMAL) 01/29/21 05:39 RBC Morphology Normal (NORMAL) 01/29/21 05:39 Sodium 139 mmol/L (136-145) 01/29/21 05:35 Corrected Sodium 140 mmol/L (136-145) 01/29/21 05:35 Potassium 3.8 mmol/L (3.5-5.1) 01/29/21 05:35 Chloride 107 mmol/L (98-107) 01/29/21 05:35 Carbon Dioxide 26.9 mmol/L (21-32) 01/29/21 05:35 BUN 44 mg/dL (7-18) H 01/29/21 05:35 Creatinine 2.22 mg/dL (0.70-1.30) H 01/29/21 05:35 Est GFR (MDRD) Af Amer 39 (>60) L 01/29/21 05:35 Est GFR (MDRD) Non-Af 32 (>60) L 01/29/21 05:35 Glucose 138 mg/dL (65-99) H 01/29/21 05:35 POC Glucose (mg/dL) 153 mg/dL (65-99) H 01/29/21 05:21 Calcium 7.9 mg/dL (8.5-10.1) L 01/29/21 05:35 Corrected Calcium 9.3 mg/dL (8.5-10.1) 01/29/21 05:35 Total Bilirubin 0.30 mg/dL (0.2-1.0) 01/29/21 05:35 AST 87 Units/L (15-37) H 01/29/21 05:35 ALT 56 Units/L (12-78) 01/29/21 05:35 Alkaline Phosphatase 59 Units/L (46-116) 01/29/21 05:35 Creatine Kinase 1068 Units/L (39-308) H 01/29/21 05:39 CK-MB (CK-2) 1.5 ng/mL (0-4.0) 01/29/21 05:39 CK/CKMB % Calc 0.1 % (<4) 01/29/21 05:39 Troponin I 0.02 ng/mL (0-1.5) 01/29/21 05:39 Total Protein 5.9 g/dL (6.4-8.2) L 01/29/21 05:35 Albumin 2.3 g/dL (3.4-5.0) L 01/29/21 05:35 Globulin 3.6 g/dL (2.5-4.5) 01/29/21 05:35 Albumin/Globulin Ratio 0.6 Ratio (1.1-2.1) L 01/29/21 05:35 Specimen Type Clean catch urine 01/27/21 15:36 Urine Color Yellow (YELLOW) 01/27/21 15:36 Urine Appearance Cloudy (CLEAR) 01/27/21 15:36 Urine pH 5.0 (5.0 - 8.0) 01/27/21 15:36 Ur Specific [place] 1.015 (1.000-1.030) 01/27/21 15:36 Urine Protein 3+ (NEGATIVE) 01/27/21 15:36 Urine Glucose (UA) Negative (NEGATIVE) 01/27/21 15:36 Urine Ketones Negative (NEGATIVE) 01/27/21 15:36 Urine Occult Blood 5+ (NEGATIVE) 01/27/21 15:36 Urine Nitrite Negative (NEGATIVE) 01/27/21 15:36 Urine Bilirubin Negative (NEGATIVE) 01/27/21 15:36 Urine Urobilinogen Normal (NORMAL) 01/27/21 15:36 Ur Leukocyte Esterase 3+ (NEGATIVE) 01/27/21 15:36 Urine RBC 3-5 /HPF (0-3) A 01/27/21 15:36 Urine WBC 30-50 /HPF (0-5) A 01/27/21 15:36 Ur Squamous Epith Cells Rare /HPF (NEGATIVE) 01/27/21 15:36 Amorphous Sediment 2+ /HPF (NEGATIVE) 01/27/21 15:36 Urine Bacteria 3+ /HPF (NEGATIVE) 01/27/21 15:36 Granular Casts Numerous /LPF (NEGATIVE) 01/27/21 15:36 Ur Culture Indicated? Yes/culture set up 01/27/21 15:36 Acetone, Semi-Quant Negative (NEGATIVE) 01/27/21 12:35 SARS CoV-2 RNA Rapid ANA LUISA Negative (NEGATIVE) 01/27/21 14:33 - Plan (1) Rhabdomyolysis Status: Acute Qualifiers: Rhabdomyolysis type: traumatic Encounter type: initial encounter Qualifie d Code(s): T79.6XXA - Traumatic ischemia of muscle, initial encounter Plan: NORMAL SALINE AT 125 ML/HR, ROCEPHIN 1G IV DAILY, ALBUMIN 25% IV DAILY, LEVEMIR 50MG SC BID, HUMULIN R SLIDING SCALE, ZOFRAN 4MG IV Q8H PRN, NORCO 5/325MG PO Q6H PRN, COLACE 200MG PO HS, AND MILK OF MAGNESIA 30MG PO BID. (2) Acute renal failure due to rhabdomyolysis Status: Acute (3) Urinary tract infection Status: Acute Qualifiers: Urinary tract infection type: acute cystitis Hematuria presence: with hematuria Qualified Code(s): N30.01 - Acute cystitis with hematuria (4) Dehydration Status: Acute (5) Hyperglycemia Status: Acute (6) Nausea and vomiting Status: Acute Qualifiers: Vomiting type: unspecified Vomiting Intractability: unspecified Qualified Code(s): R11.2 - Nausea with vomiting, unspecified
[2021-01-29] MEDS: ZOFRAN INJ 4 MG VIAL IVP PRN (15:39)
[2021-01-29] MEDS: COLACE CAP 100 MG PO SCH (20:30)
[2021-01-29] MEDS: SNACK - Diabetic Appropriate PO SCH (20:32)
[2021-01-29] MEDS: ROCEPHIN VIAL 1 GRAM 1 G in NS 100 ML IV + SPIKE MINIBAG* 100 ML IV SCH (22:09)
[2021-01-30] MEDS: NS 1000 ML 1,000 ML IV SCH ×2 (04:01→05:31)
[2021-01-30 06:05] LABS: BASOPHILS % (AUTO) 0.4 % (0.2-1.0); EOSINOPHILS % (AUTO) 0.6 % (0.9-2.9); HEMATOCRIT 29.2 % (42.0-54.0); HEMOGLOBIN 10.1 g/dL (13.5-18.0); LYMPHOCYTES % (AUTO) 14.7 % (21.0-51.0); MEAN CORPUSCULAR HEMOGLOBIN 30.2 pg (27.0-34.0); MEAN CORPUSCULAR HGB CONC 34.7 g/dL (33.0-35.0); MEAN CORPUSCULAR VOLUME 86.9 fL (80.0-100.0); MEAN PLATELET VOLUME 8.5 fL (7.4-11.0); MONOCYTES # (AUTO) 0.8 x10^3/uL (0.3-0.8); MONOCYTES % (AUTO) 12.3 % (0.0-13.0); NEUTROPHILS # (AUTO) 4.9 x10^3/uL (2.2-4.8); PLATELET COUNT 70 X10^3/uL (150.0-450.0); RED BLOOD COUNT 3.36 X10^6/uL (4.7-6.0); RED CELL DISTRIBUTION WIDTH 14.4 % (11.6-16.5); WHITE BLOOD COUNT 6.8 X10^3/uL (3.6-10.0)
[2021-01-30 06:18] LABS: ALANINE AMINOTRANSFERASE 60 Units/L (12-78); ALBUMIN 2.7 g/dL (3.4-5.0); ALKALINE PHOSPHATASE 75 Units/L (46-116); ASPARTATE AMINO TRANSFERASE 81 Units/L (15-37); BLOOD UREA NITROGEN 31 mg/dL (7-18); CARBON DIOXIDE 27.5 mmol/L (21-32); CHLORIDE 106 mmol/L (98-107); CREATININE 1.99 mg/dL (0.70-1.30); SODIUM 140 mmol/L (136-145); TOTAL PROTEIN 6.6 g/dL (6.4-8.2); eGFR NON BLACK RACES 36 (>60)
--- NOTE | 2021-01-30 08:10 | RAD ---
HISTORYSOBSTUDYCHEST x-ray, 1 VIEWCOMPARISONX-ray 01/29/2021FINDINGSBorderline CHF appears less prominent than prior study. No pulmonary edema or pneumonia is seen. No pneumothorax or pleural effusion is seen.IMPRESSIONBorderline CHF appears improved since prior study.Electronically signed by: Gallo Pulido (January 30, 2021 08:08:20)
[2021-01-30] MEDS: ALBUMIN HUMAN 25%- 100 ML 100 ML IV SCH (09:12)
[2021-01-30] MEDS: MILK OF MAGNESIA PO SCH (09:13)
[2021-01-30] MEDS: LEVEMIR SC SCH (09:13)
[2021-01-30 09:39] VITALS: BP 145/77
== END 2021-01-30 11:40 | disposition home or self-care (01) | DRG 690 ==
LOC: MED/SURG 12:06 → ER 12:06 → OBSVTOIN 13:52 → MED/SURG 15:30
PROVIDERS: ADMIT Internal Medicine; ATTEND Internal Medicine
DX: R11.2 Nausea with vomiting, unspecified; E86.0 Dehydration; N30.01 Acute cystitis with hematuria; N17.8 Other acute kidney failure; R26.89 Other abnormalities of gait and mobility; Z20.822 Contact with and (suspected) exposure to COVID-19; W18.39XA Other fall on same level, initial encounter; B96.29 Other Escherichia coli [E. coli] as the cause of diseases classified elsewhere; K59.09 Other constipation; E11.65 Type 2 diabetes mellitus with hyperglycemia; I10 Essential (primary) hypertension; T79.6XXA Traumatic ischemia of muscle, initial encounter